=== PATIENT | male | born 1935 | race Caucasian/White ===

== ENCOUNTER 2020-05-09 02:54 | Emergency (ER) | payer MEDICARE ==
[~2020-05-09] VITALS: Ht 185.4 cm; Wt 127.0 kg
[2020-05-09 02:54] VITALS: BP 0/0
--- NOTE | 2020-05-09 02:54 | NUR ---
PT PLACED ON CARDIAC DEFIBRILLATOR PADS. RT AT BEDSIDE, RESPIRATIONS PROVIDED VIA AMBU BAG. EMT PROVIDING COMPRESSIONS.
--- NOTE | 2020-05-09 02:54 | NUR ---
0251- PT BIBA, FULL ARREST. PT TAKEN TO BED 10. DR. FUNES AND RT AT BEDSIDE
--- NOTE | 2020-05-09 02:54 | NUR ---
0253 PT BIBA IN FULL ARREST, ASYSTOLE. EMS PROVIDING RR VIA AMBU BAG AND COMPRESSIONS. PT TAKEN TO BED 10 VIA GURNEY.
--- NOTE | 2020-05-09 02:54 | NUR ---
PER REPORT FROM ALS PROVDER, AMBULANCE WAS CALLED TO PTS RESIDENCE FOR ALOC X2 HOURS. PT WAS LAST SEEN NORMAL 2 HOURS AGO. PT WENT INTO ASYSTOLE IN ROUTE TO ED. ONLY MEDICAL HX PROVIDED BY ALS WAS CVA WITH RIGHT SIDED WEAKNESS, DM2, AND PULMONARY EMBOLISM.
--- NOTE | 2020-05-09 02:55 | NUR ---
REFFER TO CPR SHEET PAGES 1-3 FOR MORE INFORMATION.
--- NOTE | 2020-05-09 02:55 | NUR ---
IO INSERTED IN LEFT SHOULDER BY CHARLES UFNES.
[2020-05-09] MEDS ORDERED: DOPPLER MC ONE (02:57)
[2020-05-09] MEDS ORDERED: EPINEPHrine PFS 0.1 MG/ML SYR IVP ONE ×3 (03:09→03:10)
--- NOTE | 2020-05-09 03:18 | NUR ---
Dr. Schneider speaking with patient family at [facility].
--- NOTE | 2020-05-09 03:21 | NUR ---
PATIENT PRONOUNCED AT THIS TIME BT DR. Michelle FUNES
--- NOTE | 2020-05-09 03:27 | NUR ---
MENU PLANNER CALLED BY TECHNICIAN [employer].
--- NOTE | 2020-05-09 03:35 | NUR ---
SPOKE WITH SLIP FEEDER ERVIN HALL. PT CLEARED AND WILL NOT BE A CORONERS CASE.
--- NOTE | 2020-05-09 03:41 | NUR ---
CALLED [facility]. SPOKE TO LESTER. GIVEN A REFFERAL NUMBER OF #[phone]
--- NOTE | 2020-05-09 03:56 | NUR ---
SPOKE TO KARRI FROM [facility] WHO INFORMED ME THAT THEY RELEASED THE BODY TO MORTUARY. THEY ARE NOT INTERESTED IN DONATIONS FROM THE BODY.
--- NOTE | 2020-05-09 04:01 | NUR ---
FAMILY AT BEDSIDE
--- NOTE | 2020-05-09 04:12 | NUR ---
FAMILY LEAVING BEDSIDE. SANTOS JOHNSTON (NEXT OF KIN) INFORMED ER STAFF THAT HE TOOK PTS YELLOW RING AND BLACK WATCH. SNATOS UNAWARE OF PTS PREFERENCE OF MORTUARY AND WILL RECONTACT WHEN ABLE TO GET INFORMATION.
--- NOTE | 2020-05-09 04:26 | NUR ---
SPOKE WITH SANTOS JOHNSTON- SON. HE GAVE INFORMATION FOR MORTUARY OF PREFERENCE. [facility] [address] [place] [phone].
--- NOTE | 2020-05-09 04:28 | NUR ---
[phone]. NO ETA FOR APPEALS COORDINATOR TIME. SHE STATES WILL CALL BACK WITH ETA.
--- NOTE | 2020-05-09 05:32 | NUR ---
SPOKE TO NICHOLAS FROM [facility] IN ORDER TO GET AN ETA FOR BODY PICKUP. NICHOLAS STATED THAT THEY WILL BE CALLING BACK WITHIN 5 MINUTES TO GIVE ETA TIME.
--- NOTE | 2020-05-09 06:05 | NUR ---
CALLED BACK NICHOLAS FROM [facility] IN ORDER TO GET AN ETA FOR BODY PICKUP AFTER NOT RECIEVING A CALL BACK. 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
--- NOTE | 2020-05-09 06:35 | NUR ---
SPOKE WITH SANTOS JOHNSTON AND INFORMED HIM OF POSSIBLE ETA FOR [facility].
[2020-05-09 08:30] VITALS: BP 0/0
--- NOTE | 2020-05-09 08:31 | NUR ---
[facility] HERE TO AXLE POLISHER PTS BODY.
== END 2020-05-09 03:21 | disposition expired ==
LOC: MED 02:54
DX: I46.9 Cardiac arrest, cause unspecified (principal); Z88.8 Allergy status to other drugs, medicaments and biological substances
CPT/HCPCS: 31500; 36680; 99291; J0171